=== PATIENT | male | born 1995 | race Caucasian/White ===

== ENCOUNTER 2024-11-02 19:20 | Emergency (ER) | payer OTHER, SELFPAY ==
[2024-11-02 19:30] VITALS: BP 112/71; PULSE 81; RESP 18; TEMP 36.7; O2SAT 98; BMI 24.3
--- NOTE | 2024-11-02 19:48 | ED_ITS ---
HPI - Eye Problem General Time Seen by Provider: 19:49 Date Seen: 11/02/24 Chief complaint: Eye Problems Stated complaint: eye irritation Time Seen by Provider: 11/02/24 19:48 Source: patient and RN notes reviewed Mode of arrival: ambulatory Limitations: no limitations History of Present Illness HPI Narrative: This very pleasant 29-year-old male is accompanied by his with complaint of left eye irritation. He states he either scratched his eye or there is something in there. He works construction, was cleaning up debris outside and felt like he got something in his eye. This happened around noon. He has tried ibuprofen an hour ago. Was unsure of his tetanus our nursing staff did look this up, his last tetanus was 11/11/2013. He did agree to have his tetanus updated if he was due. It is bothering him to keep his eye open but he has not noted any visual change. The eye is tearing. He states it just hurts. chief complaint: eye pain Related Data Home Medications ?Medication ?Instructions ?Recorded ?Confirmed No Known Home Medications 11/02/2410/21 Allergies Allergy/AdvReac Type Severity Reaction Status Date / Time No Known Drug Allergies Allergy Verified 11/02/24 19:33 Review of Systems Narrative: As per HPI. PFSH PFSH Social History How often do you have a drink containing alcohol: monthly or less AUDIT-C Alcohol total score: 1 Non-prescribed substance use: denies use Exam Const: Vital Signs, click to edit/add: Vital Signs - 24 hr 11/02/24 19:30 Temperature 98.0 F Pulse Rate [Pulse Oximeter] 81 Respiratory Rate 18 Blood Pressure [Le ft Upper Arm] 112/71 Pulse Oximetry 98 Oxygen Delivery Me thod Room Air This 29-year-old male is alert, interactive, left eye is tearing and he is keeping his left eye closed. Two drops of tetracaine were applied, he had relief of his symptoms. He was able to open his eyes. There is no periorbital erythema or swelling. There was no mattering noted, just clear tearing. Pupils are equal round reactive, extraocular muscles intact. No visible retained foreign body, did look under magnification. Eyelids were everted and again no foreign body. Fluorescein was applied, he has uptake on the edge of the cornea about 3:00 p.m. and a small a belong little area, a few mm out on the sclera has the same uptake. There is no visible retained foreign body under magnification. His was shown the fluorescein uptake with corneal abrasions. Documenting provider has reviewed patient's vital signs: yes Course Vital Signs Vital signs: Initial Vital Signs Temperature 98.0 F 11/02/24 19:30 Temperature Source Temporal Artery Scan 11/02/24 19:30 Pulse Rate 81 11/02/24 19:30 Pulse Rhythm Regular 11/02/24 19:30 Respiratory Rate 18 11/02/24 19:30 Blood Pressure 112/71 11/02/24 19:30 Blood Pressure Mean 84 11/02/24 19:30 Blood Pressure Position Sitting 11/02/24 19:30 Pulse Oximetry 98 11/02/24 19:30 Oxygen Delivery Method Room Air 11/02/24 19:30 Vital Signs Temperature 98.0 F 11/02/24 19:30 Pulse Rate 81 11/02/24 19:30 Respiratory Rate 18 11/02/24 19:30 Blood Pressure 112/71 11/02/24 19:30 Pulse Oximetry 98 11/02/24 19:30 Oxygen Delivery Method Room Air 11/02/24 19:30 Temperature 98.0 F 11/02/24 19:30 Pulse Rate 81 11/02/24 19:30 Respiratory Rate 18 11/02/24 19:30 Blood Pressure 112/71 11/02/24 19:30 Pulse Oximetry 98 11/02/24 19:30 Oxygen Delivery Method Room Air 11/02/24 19:30 Medications Administered Medications: Discontinued Medications Generic Name Dose Route Start Last Admin Trade Name Freq PRN Reason Stop Dose Admin Diphtheria/Tetanus/Acell Pertussis 0.5 ml 11/02/24 20:03 11/02/24 20:13 Tetanus/Diphth/Pertussis 0.5 Ml Syringe IM 11/02/24 20:04 0.5 ml .ONCE ONE Administration Discharge Plan Discharge Clinical Impression: Corneal abrasion Qualifiers: Encounter type: initial encounter Laterality: left Qualified Code(s): S05.02XA - Injury of conjunctiva and corneal abrasion without foreign body, left eye, initial encounter Patient Disposition: Home, Self-Care Condition: Stable Instructions: Corneal Abrasion (ED) Additional Instructions: Use the gentamicin eyedrops, 2 drops left eye every 4-6 hours for next 2-3 days. Once your eye has no further discomfort, can stop these even if it has been 24 hours. Use Tylenol and ibuprofen alternating per bottle directions to help with discomfort. You can try patching if you feel more comfortable as we discussed. If you are not at least 50% improved by morning, do recommend recheck with grease press helper/eye doctor. If you are having ongoing issues or concerns, you absolutely need to see an eye doctor. Tetanus was updated as you last had a tetanus listed in 2014. Activity Level: No Restrictions Prescriptions: No Action No Known Home Medications Stand Alone Forms: [employer] [employer] Info Instructions
[2024-11-02] MEDS: TETANUS/DIPHTH/PERTUSSIS 0.5 ML SYRINGE IM (20:13)
--- OUTSIDE RECORDS SUMMARY | 2024-11-02 20:16 | XMS_ITS | Continuity of Care Document ---
Author Name [facility] Organization [facility] Care Team Providers Care Business Reporting Developer Name Role Phone [facility] Unavailable Unavailable Problems Combined list of problems from Department of Defense and Veterans Affairs facilities. It does not include entries that were removed or entered in error. Problem Status Onset Date Problem Type Date of Resolution Comments Source UPPER RESPIRATORY INFECTION Inactive Condition [facility] Active Condition [facility] Allergies, Adverse Reactions, Alerts Combined list of allergies from Department of Defense and Veterans Affairs facilities. It does not include entries that were removed or entered in error. Substance Category Reaction Severity Reaction type Status Date Reported Comments Source No Known Allergies [facility] list of: 1) Encounters from Department of Veterans Affairs facilities going backup to the last 18 months, not all VA inpatient encounters are included; 2) Encounters from the Department of [facility] facilities going backup to 280 months. Location Location Details Encounter Type Encounter Number Reason For Visit Attending Provider ADM Date DC Date Status Disposition Source [facility]) OUTPATIENT [id number] L ear pain x 2 days IRINEO CROOKS 10/22 Released w/o Limitations [facility] Social History Combined list of available smoking, tobacco, and other social history from Department of Defense and Veterans Affairs facilities. Social History Type Response Date Comment [facility] This section is an empty social history section. [facility]
--- OUTSIDE RECORDS SUMMARY | 2024-11-02 20:17 | XMS_ITS | Clinical Summary ---
Author Organization [facility] Address [address] [place] [address] Care Team Providers Care Bottom Cementer Name Role Phone No Primary/Referring, Phy Primary Care Provider Unavailable Source Comments You are receiving this document as you are listed as the primary care provider,follow-up provider, or the patient has been referred to you for consultation.This is in compliance with the Medicare and[facility] Hospital[facility] EHR Incentive Program,which states Providers who transition their patient to another setting of careor provider of care or refers their patient to another provider of care shouldprovide summary care record for each transition of care or referral. [facility] Allergies No known active allergies Medications methadone (DOLOPHINE) 5 MG/5ML solution Take 15 mg by mouth daily. Active escitalopram (LEXAPRO) 10 MG tabletIndication s:Moderate episode of recurrent major depressive disorder (HRC),Insomnia, unspecified type Take 1 Tablet by mouth daily. 90 Tablet 02/09/2021 Active naloxone (NARCAN) 4 MG/0.1ML nasal spray SMARTSIG:Guillermo th Nares 06/01/2021 Active Active Problems Problem Noted Date Diagnosed Date Moderate episode of recurrent major depressive d isorder 02/09/2021 PTSD (post-traumatic stress disorder) 02/09/2021 Insomnia 02/09/2021 Heroin abuse 02/09/2021 Cannabis abuse 02/09/2021 Tobacco dependence 02/09/2021 Brief psychotic disorder 07/24/2015 Encounter for patient compli ance monitoring in drug treatment program 05/11/2013 Overview (02/09/2021): Failed drug compliance screening: on adderall: tested negative, on vistaril: tested negative. Migraine 01/13/2012 Substance dependence, in remission 01/09/2011 Overview (02/09/2021): THC Attention deficit hyperactivity disorder (ADHD) 04/23/2006 Resolved Problems Problem Noted Date Diagnosed Date Resolved Date Screening for HIV (human imm unodeficiency virus) 02/09/2021 02/09/2021 Immunizations Immunization Administration Dates Next Due Flu Vac (3+ yrs) 12/31/2009,01/15/2007 Influenza LAIV (Nasal, 2-49 yrs) 02/09/2021 MCV4 (Menactra) 01/15/2007 MMR 11/12/2005 Tdap 11/11/2013,11/12/2005 Family History Medical History Relation Name Comments Bipolar Disorder Father Cancer, Other Father Brain Tumor Cancer, Other Maternal Grandmother Relation Name Status Comments Father Alive Mother Alive Maternal Grandfather Maternal Grandmother Paternal Grandfather Paternal Grandmother Social History Tobacco Use Types Packs/Day Years Used Date Smoking Tobacco: Every Day Cigarettes Smokeless Tobacco: Never Alcohol Use Standard Drinks/Week Comments Not Currently 0 (1 standard drink = 0.6 oz pur e alcohol) PHQ-2 Answer Date Recorded PHQ-2 Score 3 02/09/2021 Sex and Gender Information Value Date Recorded Sex Assigned at Not on file Legal Sex Male 7:12 AM CDT Gender Identity Not on file Sexual Orientation Not on file Last Filed Vital Signs Vital Sign Reading Time Taken Comments Blood Pressure 99/64 06/17/2021 12:22 PM CDT Pulse 65 06/17/2021 12:22 PM CDT Temperature 36.7 C (98 F) 06/17/2021 12:22 PM CDT Respiratory Rate 18 06/17/2021 12:22 PM CDT Oxygen Saturation 95% 06/17/2021 12:22 PM CDT Inhaled Oxygen Concentration - - Weight 69.9 kg (154 lb) 02/09/2021 3:29 PM GLOBAL TRANSPORTATION MANAGER Height 175.3 cm (5' 9) 02/09/2021 3:29 PM GLOBAL TRANSPORTATION MANAGER Body Mass Index 22.74 02/09/2021 3:29 PM GLOBAL TRANSPORTATION MANAGER Plan of Treatment Health Maintenance Due Date Last Done Comments Hep C Screening (Preventive Services) 1993 HIV Screening (Preventive Services) 2009 HepB Vaccine (1) 01/20/2012 Adult Preventive Visit 02/09/2023 02/09/2021 DTaP/Tdap/Td Vaccine (3 - Tdap) 11/12/2023 11/11/2013, 11/12/2005 COVID-19 Vaccine (1 - 2023-2 5 season) 2023 Influenza Vaccine (#1) 2024 , 12/31/2009, 01/15/2007 Zoster/Shingles Vaccine (1 o f 2) 2043 MCV4 Vaccine Aged Out 01/15/2007 No longer eligi ble based on patient's age to complete this topic HPV Vaccine Aged Out No longer eligi ble based on patient's age to complete this topic HepA Vaccine Aged Out No longer eligi ble based on patient's age to complete this topic Hib Vaccine Aged Out No longer eligi ble based on patient's age to complete this topic IPV (Polio) Vaccine Aged Out No longe r eligible based on patient's age to complete this topic Meningococcal B Vaccine Aged Out No l onger eligible based on patient's age to complete this topic Pneumococcal Vaccine Aged Out No long er eligible based on patient's age to complete this topic Care Teams Bottom Cementer Relationship Specialty Start Date End Date No Primary/Referring, Kaminiy PCP - General 06/17/21
--- OUTSIDE RECORDS SUMMARY | 2024-11-02 20:17 | XMS_ITS | Clinical Summary ---
Author Organization [facility] Address [address] [place] [address] Care Team Providers Care Database Software Technician Name Role Phone Shauna Mantilla CLAY DRY PRESS OPERATOR Unavailable [phone] Pcp, No Primary Care Provider Unavailabl e Allergies No known active allergies Medications azithromycin (ZITHROMAX) 250 mg tabletIndication s:Pneumonitis,SO B (shortness of breath),Cough Take 500 mg (2 tabs) by mouth on day 1, then 250 mg (1 tab) daily for days 2-5. 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 Migraine 01/13/2012 Substance dependence, in remission 01/09/2011 Overview (07/18/2011): THC Attention deficit disorder with hyperactivity(31 4.01) 04/23/2006 Immunizations Immunization Administration Dates Next Due Influenza, IIV3 (Age >=3 years) 12/31/2009,01/15 MMR 11/12/2005 Meningococcal Vaccine (Menactra) 01/15/2007 Tdap 11/11/2013,11/12/2005 Family History Medical History Relation Name Comments Alcohol/Drug Father Other Father migraine Alcohol/Drug Mother Relation Name Status Comments Brother Alive x1 Father Alive Maternal Grandfather Alive Maternal Grandmother Alive Mother Alive Paternal Grandfather Alive Paternal Grandmother Social History Tobacco Use Types Packs/Day Years Used Date Smoking Tobacco: Every Day Cigarettes Smokeless Tobacco: Never Tobacco Cessation:Ready to Q uit: No; Counseling Given: Yes Alcohol Use Standard Drinks/Week Comments No 0 (1 standard drink = 0.6 oz pur e alcohol) Sex and Gender Information Value Date Recorded Sex Assigned at Not on file Legal Sex Male 5:21 AM FILLING HAND Gender Identity Not on file Sexual Orientation Not on file 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 on file Not on file Not on file Obstetrics History Last Filed Vital Signs Vital Sign Reading Time Taken Comments Blood Pressure 139/83 05/27/2019 11:48 AM FILLING HAND Pulse 88 05/27/2019 11:48 AM FILLING HAND Temperature 36.8 C (98.3 F) 05/27/2019 11:48 AM FILLING HAND Respiratory Rate 18 05/27/2019 11:4 8 AM FILLING HAND Oxygen Saturation 100% 05/27/2019 11: 48 AM FILLING HAND Inhaled Oxygen Concentration - - Weight 64.4 kg (141 lb 14.4 oz) 020 11:48 AM FILLING HAND Height 175.3 cm (5' 9) 05/27/2019 11:4 8 AM FILLING HAND Body Mass Index 20.95 05/27/2019 11:48 AM FILLING HAND Plan of Treatment Health Maintenance Due Date Last Done Comments HIV for age 15-65 01/20/2008 Hepatitis C screening for age 18-79 2011 Hepatitis B series for 19+ (1 of 3 - 19+ 3-dose series) 01/20/2012 Depression screening for age 12+ 09/24/2016 09/25/2015, 07/31/2015, 07/23/2015, Additional history exists BMI (ht and wt on same day) for age 18+ 09/10/2017 09/10/2016, 04/29/2016, 09/25/2015, Additional history exists Tetanus booster 11/12/2023 11/11/2013, 11/12/2005 COVID-19 vaccine series ( season) 2023 Influenza Vaccine (#1) 2024 12/31/2009, 2006 Pneumococcal series for age 6-49 Aged Out No longer eligible based on patient's age to complete this topic Insurance MEDICAID MEDICAID MEDICAID [address] [place] [id number] [place] [id number] [facility] [place] [id number] [place] [id number] Advance Directives * Full Code (Latest Code Status on File) Date Activated Date Inactivated Comments 09/10/2016 12:48 PM 09/10/2016 5:26 PM * Full Code Date Activated Date Inactivated Comments 07/24/2015 5:57 AM 07/26/2015 12:24 PM Question Answer Comments Code Status Discussion: Discussed Care Teams Database Software Technician Relationship Specialty Start Date End Date Pcp, No . PCP - General 07/07/17 Shauna Mantilla NP [address] [facility] [address] [place] [id number] Family Practice 04/13/13
== END 2024-11-02 20:22 | disposition home or self-care (01) ==
LOC: ED 20:15
PROVIDERS: Emergency Provider Family Medicine
DX: S05.02XA Injury of conjunctiva and corneal abrasion without foreign body, left eye, initial encounter (principal); Y93.H3 Activity, building and construction; Z23 Encounter for immunization
CPT/HCPCS: 90471; 90715; 99283; A9270